=== PATIENT | female | born 1985 | race Caucasian/White ===

== ENCOUNTER 2018-12-06 08:20 | Emergency (ER) | payer MEDICAID ==
[~2018-12-06] VITALS: Ht 167.6 cm; Wt 80.7 kg
[2018-12-06 08:36] VITALS: Ht 167.6 cm; Wt 80.7 kg
[2018-12-06 10:12] LABS: CALCIUM 8.9 mg/dL (8.5-10.1); CARBON DIOXIDE 27.8 mmol/L (21-32); CHLORIDE SERUM 106 mmol/L (98-107); CREATININE SERUM 0.8 mg/dL (0.6-1.0); GFR1 > 60 mL/min; GLUCOSE SERUM 95 mg/dL (74-106); POTASSIUM SERUM 3.9 mmol/L (3.5-5.1); SODIUM SERUM 142 mmol/L (136-145)
[2018-12-06 10:16] LABS: ALBUMIN 3.4 g/dL (3.4-5.0); ALKALINE PHOSPHATASE 60 U/L (46-116); ALT/SGPT 24 U/L (14-59); AST/SGOT 8 U/L (15-37); BILIRUBIN TOTAL 0.4 mg/dL (0.20-1.00); LIPASE 123 IU/L (73-393); TOTAL PROTEIN, SERUM 6.7 g/dL (6.4-8.2)
[2018-12-06 10:27] LABS: BASOPHIL % 0.6 % (0-2); PLATELET COUNT 176 x10^3mcL (130-400); RED CELL DISTRIBUTION WIDTH 12.9 % (11.5-14.5)
[2018-12-06 11:09] VITALS: BP 101/65
== END 2018-12-06 11:09 | disposition home or self-care (01) ==
LOC: ED 08:20
PROVIDERS: Emergency Medicine
DX: N13.2 Hydronephrosis with renal and ureteral calculous obstruction (principal); Z98.890 Other specified postprocedural states; Z87.442 Personal history of urinary calculi
CPT/HCPCS: J2270; J2405; J7030

== ENCOUNTER 2019-09-22 20:24 | Emergency (ER) | payer SELFPAY ==
[~2019-09-22] VITALS: Ht 165.1 cm; Wt 81.6 kg
[2019-09-22 20:30] VITALS: Ht 165.1 cm; Wt 81.6 kg
[2019-09-22 21:28] LABS: microscopic required? YES; urine erythrocyte 3+ (NEGATIVE)
[2019-09-22 22:39] VITALS: BP 121/59
== END 2019-09-22 22:39 | disposition home or self-care (01) ==
LOC: ED 20:24
PROVIDERS: Emergency Medicine
DX: R10.9 Unspecified abdominal pain (principal); R11.0 Nausea
CPT/HCPCS: J1885; J2405; J7030